=== PATIENT | male | born 1955 | race Caucasian/White ===

== ENCOUNTER → 2024-10-28 08:42 | Outpatient (REF) | payer MEDICARE, SELFPAY | LOC: MRI 3T 08:42 | PROVIDERS: ATTENDING PHYSICIAN Student in an Organized Health Care Education/Training Program; FAMILY PHYSICIAN Internal Medicine | DX: S86.911A Strain of unspecified muscle(s) and tendon(s) at lower leg level, right leg, initial encounter (principal) | CPT/HCPCS: 73721 ==